=== PATIENT | male | born 1930 ===

== ENCOUNTER 2018-08-27 19:38 | Emergency (ER) | payer OTHER, MEDICARE ==
[~2018-08-27] VITALS: Ht 167.6 cm; Wt 95.7 kg
[2018-08-27] MEDS ORDERED: BUDE10.22 INH (20:04)
[2018-08-27] MEDS ORDERED: HYDCHL25 PO (20:05)
[2018-08-27] MEDS ORDERED: [UNRECOGNIZED DRUG - OTHER] TOP (20:05)
[2018-08-27] MEDS ORDERED: NAPR500ERA PO (20:06)
[2018-08-27] MEDS ORDERED: Synthroid25 MCG PO (20:06)
[2018-08-27] MEDS ORDERED: ACID REDUCER 1150 MG PO (20:07)
[2018-08-27] MEDS ORDERED: SIMV10 PO (20:08)
[2018-08-27] MEDS ORDERED: TIOT18 INH (20:08)
[2018-08-27] MEDS ORDERED: VOLTAREN100 GM TOP (20:34)
[2018-08-27] MEDS ORDERED: Prednisone20 MG PO (22:18)
[2018-08-27] MEDS ORDERED: Zithromax250 MG PO (22:18)
== END 2018-08-27 22:56 | disposition home or self-care (01) ==
LOC: ER 19:38
DX: J44.1 Chronic obstructive pulmonary disease with (acute) exacerbation (principal); M19.032 Primary osteoarthritis, left wrist; Z79.899 Other long term (current) drug therapy
CPT/HCPCS: 99283